=== PATIENT | male | born 1955 | race Caucasian/White ===

== ENCOUNTER 2019-11-19 19:16 | Emergency (ER) | payer BC ==
[~2019-11-19] VITALS: Ht 175.3 cm; Wt 77.1 kg
[2019-11-19] MEDS ORDERED: SODIUM CHLORIDE 0.9% 1000ML 1,000 ML IV STA (20:03)
[2019-11-19] MEDS ORDERED: ASPIRIN 81 MG CHEW TAB PO ONE (20:15)
[2019-11-19 20:27] LABS: BASOPHILS # (AUTO) 0.1 (0.0-0.1); BASOPHILS % 0.9 % (0.0-1.0); EOSINOPHILS # (AUTO) 0.1 (0.0-0.4); EOSINOPHILS % 0.9 % (0.0-6.0); HEMATOCRIT 47.4 % (38.2-49.6); HEMOGLOBIN 15.5 g/dL (14.0-18.0); LYMPHOCYTES % 13.3 % (18.0-39.1); MEAN CORPUSCULAR HEMOGLOBIN 28.4 pg (28-32); MEAN CORPUSCULAR HGB CONC 32.7 g/dL (31-35); MEAN CORPUSCULAR VOLUME 86.8 fL (81-99); MONOCYTES # (AUTO) 0.5 (0.2-0.8); MONOCYTES % 7.1 % (4.4-11.3); NEUTROPHILS # (AUTO) 5.8 (2.1-6.9); NEUTROPHILS % 77.5 % (38.7-80.0); PLATELET COUNT 391 x10e3/uL (140-360); RED BLOOD COUNT 5.46 x10e6/uL (4.3-5.7); RED CELL DISTRIBUTION WIDTH 14.2 % (11.7-14.4)
--- NOTE | 2019-11-19 20:39 | Diagnostic Imaging Report ---
EXAMINATION: CHEST SINGLE (PORTABLE) INDICATION: ^ERMD ORDER ^Y COMPARISON: None FINDINGS: AP view TUBES and LINES: None. LUNGS: Lungs are well inflated. Lungs are clear. There is no evidence of pneumonia or pulmonary edema. PLEURA: No pleural effusion or pneumothorax. HEART AND MEDIASTINUM: The cardiomediastinal silhouette is unremarkable.. BONES AND SOFT TISSUES: No acute osseous lesion. Soft tissues are unremarkable. UPPER ABDOMEN: No free air under the diaphragm. IMPRESSION: No acute thoracic abnormality. Signed by: Dr. Sarah Pena M.D. on 11/19/2019 8:36 PM
--- NOTE | 2019-11-19 20:41 | Diagnostic Imaging Report ---
History:left weakness Comparison studies: None Technique: Axial images were obtained from the skull base to the vertex. Coronal and sagittal images reconstructed from the axial data. Dose modulation, iterative reconstruction, and/or weight based adjustment of the mA/kV was utilized to reduce the radiation dose to as low as reasonably achievable. 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 Otherwise, no abnormalities. Extra-axial spaces: No masses. No fluid collections. Brain sulci: Mildly prominent. Ventricles: Mild compensatory dilatation. No hydrocephalus. Parenchyma: Describe hypodensities in the supratentorial white matter are small vessel ischemic changes. No masses, hemorrhage, acute or chronic cortical vascular insults. Sellar/suprasellar region: No abnormalities. Craniocervical junction: Patent foramen magnum. No Chiari one malformation. Incidental findings: Subtle atherosclerotic calcifications in the carotid siphons . Impression: 1. No intracranial abnormalities. 2. 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 Signed by: Dr. Newton Brooks M.D. on 11/19/2019 8:37 PM
[2019-11-19 20:44] LABS: ALANINE AMINOTRANSFERASE 27 IU/L (0-55); ALBUMIN 4.6 g/dL (3.5-5.0); ALBUMIN/GLOBULIN RATIO 1.2 (0.8-2.0); ALKALINE PHOSPHATASE 66 IU/L (40-150); ANION GAP 15.3 mmol/L (8-16); BLOOD UREA NITROGEN 17 mg/dL (7-26); BUN/CREATININE RATIO 15 (6-25); CARBON DIOXIDE 27 mmol/L (22-29); CHLORIDE 106 mmol/L (98-107); CREATINE KINASE 158 IU/L (30-200); CREATININE, SERUM 1.17 mg/dL (0.72-1.25); EST GLOMERULAR FILTRATION RATE > 60 ML/MIN (60-); GLUCOSE 96 mg/dL (74-118); POTASSIUM 4.3 mmol/L (3.5-5.1); SODIUM 144 mmol/L (136-145)
--- NOTE | 2019-11-19 22:49 | NUR ---
TRANSFER INITIATED TO [facility], SPOKE TO PAULINO
--- NOTE | 2019-11-19 22:54 | NUR ---
HOME HORVATH SPEAKING TO AT [facility]
== END 2019-11-19 23:59 | disposition other institution (70) ==
LOC: ER 19:16
DX: R53.1 Weakness (principal); G45.9 Transient cerebral ischemic attack, unspecified; R00.1 Bradycardia, unspecified; R26.2 Difficulty in walking, not elsewhere classified; D17.79 Benign lipomatous neoplasm of other sites
CPT/HCPCS: 36415; 70450; 71045; 80053; 80320; 82550; 82553; 84484; 85025; 93005; 99284

== ENCOUNTER 2020-01-27 13:46 | Observation (INO) | payer BC, OTHER ==
[~2020-01-27] VITALS: Ht 175.3 cm; Wt 81.2 kg
--- NOTE | 2020-01-27 15:22 | Diagnostic Imaging Report ---
EXAMINATION: CHEST 2 VIEWS INDICATION: Chest pain COMPARISON: Chest radiograph 11/19/2019 FINDINGS: LINES/TUBES:None LUNGS:Linear and hazy opacity at the left perihilar region. PLEURA:No pleural effusion or pneumothorax. MEDIASTINUM:The cardiomediastinal silhouette appears normal in size and shape. BONES/SOFT TISSUES:No acute osseous injury. ABDOMEN:No free air under the diaphragm. IMPRESSION: New linear and hazy opacities at the left perihilar region may represent subsegmental atelectasis however superimposed aspiration or pneumonia could have a similar appearance in the proper clinical setting. Signed by: Waldo Mims MD on 01/27/2020 3:19 PM
[2020-01-27] MEDS ORDERED: CEFTRIAXONE SOD 1 GM/NS 50 ML 50 ML IV ONE (16:45)
[2020-01-27 17:06] LABS: BASOPHILS # (AUTO) 0.1 (0.0-0.1); BASOPHILS % 0.5 % (0.0-1.0); EOSINOPHILS # (AUTO) 0.2 (0.0-0.4); EOSINOPHILS % 1.5 % (0.0-6.0); HEMATOCRIT 36.5 % (38.2-49.6); HEMOGLOBIN 11.8 g/dL (14.0-18.0); LYMPHOCYTES # (AUTO) 1.1 (1.0-3.2); MEAN CORPUSCULAR HEMOGLOBIN 27.5 pg (28-32); MEAN CORPUSCULAR HGB CONC 32.3 g/dL (31-35); MEAN CORPUSCULAR VOLUME 85.1 fL (81-99); MONOCYTES # (AUTO) 1.2 (0.2-0.8); MONOCYTES % 10.6 % (4.4-11.3); NEUTROPHILS # (AUTO) 8.6 (2.1-6.9); PLATELET COUNT 459 x10e3/uL (140-360); RED BLOOD COUNT 4.29 x10e6/uL (4.3-5.7); RED CELL DISTRIBUTION WIDTH 14.2 % (11.7-14.4)
[2020-01-27] MEDS ORDERED: CEFTRIAXONE SOD 1 GM VIAL ONE (17:22)
[2020-01-27 17:23] LABS: ALANINE AMINOTRANSFERASE 74 IU/L (0-55); ALBUMIN 3.2 g/dL (3.5-5.0); ALBUMIN/GLOBULIN RATIO 0.6 (0.8-2.0); ALKALINE PHOSPHATASE 98 IU/L (40-150); ANION GAP 16.3 mmol/L (8-16); BLOOD UREA NITROGEN 16 mg/dL (7-26); BUN/CREATININE RATIO 17 (6-25); CALCIUM 9.4 mg/dL (8.4-10.2); CARBON DIOXIDE 25 mmol/L (22-29); CHLORIDE 101 mmol/L (98-107); CREATININE, SERUM 0.92 mg/dL (0.72-1.25); EST GLOMERULAR FILTRATION RATE > 60 ML/MIN (60-); GLUCOSE 94 mg/dL (74-118); POTASSIUM 4.3 mmol/L (3.5-5.1); SODIUM 138 mmol/L (136-145)
[2020-01-27] MEDS ORDERED: ATORVASTATIN CA80 MG (18:02)
[2020-01-27] MEDS ORDERED: LEVOTHYROXINE25 MCG (18:02)
[2020-01-27] MEDS ORDERED: LISINOPRIL10 MG (18:02)
--- NOTE | 2020-01-27 18:04 | NUR ---
covid swab done
--- NOTE | 2020-01-27 19:04 | Emergency Department Note ---
History of Present Illnes History of Present Illness Chief Complaint: Chest Pain History of Present Illness This is a 64 year old male . Chief Complaint Comment c/o pain to left side of chest x 1 week c/o pain on inspiration and palpation states he was just working then pain came on Historian: Patient Arrival Mode: Car Onset quality: gradual Duration (how long): week(s) Timing of current episode: constant Progression: worsening Past Medical/Family History Physician Review I have reviewed the patient's past medical and family history. Any updates have been documented here. Past Medical History Recent Fever: No Clinical Suspicion of Infectio: No New/Unexplained Change in Ment: No Past Medical History: Hypertension, Hypothyroidism, Hyperlipedemia Past Surgical History: None Social History Smoking Cessation: Former smoker Counseling Performed: No Alcohol Use: None Any Illegal Drug Use: No TB Exposure/Symptoms: No Physically hurt or threatened: No Other Last Tetanus: utd Any Pre-Existing Lines (PICC,: No Is patient up to date on immun: Yes Last Flu: utd Last Pneumovax: utd Review of Systems Review of Systems Constitutional: Reports no symptoms EENTM: Reports no symptoms Cardiovascular: Reports no symptoms Respiratory: Reports as per HPI, Reports other Gastrointestinal: Reports no symptoms Genitourinary: Reports no symptoms Musculoskeletal: Reports no symptoms Integumentary: Reports no symptoms Neurological: Reports no symptoms Psychological: Reports no symptoms Endocrine: Reports no symptoms Hematological/Lymphatic: Reports no symptoms Physical Exam Related Data Allergies: Coded Allergies: No Known Allergies (Unverified , 11/19/19) Triage Vital Signs Vital Signs Date Time Temp Pulse Resp B/P (MAP) Pulse Ox O2 Delivery O2 Flow Rate FiO2 01/27/20 13:57 97.8 69 18 149/85 95 Vital signs reviewed: Yes Physical Exam CONSTITUTIONAL Constitutional: Present well-developed, Present well-nourished HENT HENT: Present normocephalic, Present atraumatic, Present oropharynx clear/moist, Present nose normal HENT L/R: Present left ext ear normal, Present right ext ear normal EYES Eyes: Reports PERRL, Reports conjunctivae normal NECK Neck: Present ROM normal PULMONARY Pulmonary: Present effort normal, Present breath sounds normal CARDIOVASCULAR Cardiovascular: Present regular rhythm, Present heart sounds normal, Present capillary refill normal, Present normal rate GASTROINTESTINAL Abdominal: Present soft, Present nontender, Present bowel sounds normal GENITOURINARY Genitourinary: Present exam deferred SKIN Skin: Present warm, Present dry MUSCULOSKELETAL Musculoskeletal: Present ROM normal NEUROLOGICAL Neurological: Present alert, Present oriented x 3, Present no gross motor or sensory deficits PSYCHOLOGICAL Psychological: Present mood/affect normal, Present judgement normal Results Laboratory Result Diagram: 01/27/20 1640 01/27/20 1640 Laboratory Laboratory Tests Test 01/27/20 17:30 01/27/20 16:40 White Blood Count 11.15 x10e3/uL (4.8-10.8) Red Blood Count 4.29 x10e6/uL (4.3-5.7) Hemoglobin 11.8 g/dL (14.0-18.0) Hematocrit 36.5 % (38.2-49.6) Mean Corpuscular Volume 85.1 fL (81-99) Mean Corpuscular Hemoglobin 27.5 pg (28-32) Mean Corpuscular Hemoglobin Concent 32.3 g/dL (31-35) Red Cell Distribution Width 14.2 % (11.7-14.4) Platelet Count 459 x10e3/uL (140-360) Neutrophils (%) (Auto) 77.0 % (38.7-80.0) Lymphocytes (%) (Auto) 10.0 % (18.0-39.1) Monocytes (%) (Auto) 10.6 % (4.4-11.3) Eosinophils (%) (Auto) 1.5 % (0.0-6.0) Basophils (%) (Auto) 0.5 % (0.0-1.0) Neutrophils # (Auto) 8.6 (2.1-6.9) Lymphocytes # (Auto) 1.1 (1.0-3.2) Monocytes # (Auto) 1.2 (0.2-0.8) Eosinophils # (Auto) 0.2 (0.0-0.4) Basophils # (Auto) 0.1 (0.0-0.1) Absolute Immature Granulocyte (auto 0.05 x10e3/uL (0-0.1) Sodium Level 138 mmol/L (136-145) Potassium Level 4.3 mmol/L (3.5-5.1) Chloride Level 101 mmol/L (98-107) Carbon Dioxide Level 25 mmol/L (22-29) Anion Gap 16.3 mmol/L (8-16) Blood Urea Nitrogen 16 mg/dL (7-26) Creatinine 0.92 mg/dL (0.72-1.25) Estimat Glomerular Filtration Rate > 60 ML/MIN (60-) BUN/Creatinine Ratio 17 (6-25) Glucose Level 94 mg/dL (74-118) Calcium Level 9.4 mg/dL (8.4-10.2) Total Bilirubin 0.4 mg/dL (0.2-1.2) Aspartate Amino Transf (AST/SGOT) 39 IU/L (5-34) Alanine Aminotransferase (ALT/SGPT) 74 IU/L (0-55) Alkaline Phosphatase 98 IU/L (40-150) Total Protein 8.3 g/dL (6.5-8.1) Albumin 3.2 g/dL (3.5-5.0) Globulin 5.1 g/dL (2.3-3.5) Albumin/Globulin Ratio 0.6 (0.8-2.0) Lab results reviewed: Yes Imaging Imaging results reviewed: Yes Impressions IMPRESSION: New linear and hazy opacities at the left perihilar region may represent subsegmental atelectasis however superimposed aspiration or pneumonia could have a similar appearance in the proper clinical setting. Signed by: Waldo Mims MD on 01/27/2020 3:19 PM Procedures 12 Lead ECG Interpretation ECG Interpretation : ECG: ECG 1 Prior ECG tracings: reviewed Rhythm: sinus rhythm Ectopy: PVC's Rate: normal QRS axis: normal ST segments normal: Yes T waves normal: Yes Clinical Impression: normal ECG Assessment & Plan Medical Decision Making MDM 64-year-old male arrives to the ED 1 week history of cough, no concerns of sepsis, severe sepsis or any other organ dysfunction at time of admission. Patient admitted for observation for community acquired pneumonia Assessment & Plan Final Impression: (1) Pneumonia Depart Disposition: ADMITTED Last Vital Signs Date Time Temp Pulse Resp B/P (MAP) Pulse Ox O2 Delivery O2 Flow Rate FiO2 01/27/20 18:03 63 16 137/72 97 01/27/20 13:57 97.8 Home Meds Reported Medications Levothyroxine Sodium (LEVOTHYROXINE SODIUM) 25 Mcg Tablet 01/27/20 Atorvastatin Calcium (ATORVASTATIN CALCIUM) 80 Mg Tablet 01/27/20 Lisinopril (LISINOPRIL) 10 Mg Tablet 01/27/20 Medications in the ED Ceftriaxone Sodium 50 ml @ 100 mls/hr ONCE ONCE IV Last administered on 01/27/20at 17:15; Admin Dose 100 MLS/HR; Start 01/27/20 at 16:45; Stop 01/27/20 at 17:14; Status DC Ceftriaxone Sodium 1 gm STK-MED ONCE .ROUTE ; Start 01/27/20 at 17:22; Stop 01/27/20 at 17:16; Status DC SANTHOSH PONCE DO Jan 27, 2020 19:03
--- NOTE | 2020-01-27 19:05 | NUR ---
RECEIVED BEDSIDE SHIFT REPORT FROM PREVIOUS NURSE. CALL LIGHT WITHIN REACH. PATIENT IN BED. Addendum: 01/27/20 at 2340 by Yanelis Balderas RN PLEASE IGNORE
--- NOTE | 2020-01-27 20:40 | NUR ---
RECEIVED REPORT FROM DEEJAY, ER NURSE. PATIENT ARRIVED VIA WHEELCHAIR. PATIENT IS A&OX3. PATIENT IN PAIN AND WANTING SOMETHING FOR PAIN. CALL LIGHT WITHIN REACH.
[2020-01-27 20:45] VITALS: BP 136/77
[2020-01-27 20:55] VITALS: BP 136/77
[2020-01-27 21:50] VITALS: BP 136/77
[2020-01-27] MEDS ORDERED: ACETAMINOPHEN 325 MG TAB PO PRN (22:45)
[2020-01-28] VITALS: BP 130/71
[2020-01-28 04:00] VITALS: BP 104/57
[2020-01-28 06:20] LABS: BASOPHILS # (AUTO) 0.1 (0.0-0.1); BASOPHILS % 0.5 % (0.0-1.0); EOSINOPHILS # (AUTO) 0.2 (0.0-0.4); EOSINOPHILS % 1.8 % (0.0-6.0); HEMOGLOBIN 11.3 g/dL (14.0-18.0); LYMPHOCYTES # (AUTO) 0.9 (1.0-3.2); LYMPHOCYTES % 7.9 % (18.0-39.1); MEAN CORPUSCULAR HEMOGLOBIN 28.1 pg (28-32); MEAN CORPUSCULAR HGB CONC 32.3 g/dL (31-35); MEAN CORPUSCULAR VOLUME 87.1 fL (81-99); MONOCYTES # (AUTO) 1.2 (0.2-0.8); MONOCYTES % 10.7 % (4.4-11.3); NEUTROPHILS # (AUTO) 8.5 (2.1-6.9); NEUTROPHILS % 78.6 % (38.7-80.0); PLATELET COUNT 438 x10e3/uL (140-360); RED BLOOD COUNT 4.02 x10e6/uL (4.3-5.7); RED CELL DISTRIBUTION WIDTH 14.3 % (11.7-14.4)
[2020-01-28 06:41] LABS: ALANINE AMINOTRANSFERASE 59 IU/L (0-55); ALBUMIN 2.9 g/dL (3.5-5.0); ALBUMIN/GLOBULIN RATIO 0.6 (0.8-2.0); ALKALINE PHOSPHATASE 91 IU/L (40-150); ANION GAP 15.9 mmol/L (8-16); BLOOD UREA NITROGEN 18 mg/dL (7-26); BUN/CREATININE RATIO 17 (6-25); CALCIUM 9.2 mg/dL (8.4-10.2); CARBON DIOXIDE 26 mmol/L (22-29); CHLORIDE 101 mmol/L (98-107); CHOLESTEROL 111 MD/DL (0-199); CREATININE, SERUM 1.04 mg/dL (0.72-1.25); EST GLOMERULAR FILTRATION RATE > 60 ML/MIN (60-); GLUCOSE 91 mg/dL (74-118); HDL CHOLESTEROL 22 MG/DL (40-60); LDL CHOLESTEROL 73 MG/DL (60-130); PHOSPHORUS 3.8 MG/DL (2.3-4.7); POTASSIUM 4.9 mmol/L (3.5-5.1); SODIUM 138 mmol/L (136-145); TRIGLYCERIDES 78 MG/DL (0-149)
--- NOTE | 2020-01-28 06:55 | NUR ---
Received patient lying in bed with eyes open. Respiration even and unlabored without SOB. Call light in reach.
[2020-01-28 07:04] LABS: THYROID STIMULATING HORMONE 13.404 uIU/mL (0.350-4.940)
--- NOTE | 2020-01-28 07:41 | NUR ---
GAVE BEDSIDE SHIFT REPORT TO ONCOMING NURSE. CALL LIGHT WITHIN REACH. PATIENT IN BED.
[2020-01-28 08:17] VITALS: BP 124/65
[2020-01-28 09:10] VITALS: BP 124/65
[2020-01-28] MEDS ORDERED: GUAIFENESIN 600MG/DEXTROMETHORPHAN 30MG TABSR PO PRN (10:30)
[2020-01-28] MEDS ORDERED: LEVOTHYROXINE SODIUM 50 MCG TAB PO SCH (10:30)
[2020-01-28] MEDS ORDERED: ASPIRIN 81 MG CHEW TAB PO SCH (10:30)
[2020-01-28] MEDS ORDERED: ASPIRIN CHEW81 MG PO (10:33)
[2020-01-28] MEDS ORDERED: ZITHROMAX500 MG PO (10:33)
[2020-01-28] MEDS ORDERED: CEFDINIR300 MG PO (10:33)
[2020-01-28] MEDS ORDERED: FAMOTIDINE20 MG PO (10:36)
[2020-01-28] MEDS ORDERED: AZITHROMYCIN 500MG/NS 250 ML 250 ML IV SCH (11:30)
[2020-01-28] MEDS ORDERED: SODIUM CHLORIDE 0.9% 250ML 250 ML ONE (11:38)
[2020-01-28 11:57] VITALS: BP 126/69
[2020-01-28] MEDS ORDERED: FAMOTIDINE 20 MG/2 ML VIAL IV SCH (12:00)
--- NOTE | 2020-01-28 13:50 | Diagnostic Imaging Report ---
EXAM: CT Chest without intravenous contrast HISTORY: ^R/O PNA, PAIN/COUGH ^[id number] ^1300 COMPARISON: Chest radiograph 01/27/2020 TECHNIQUE: CT of the chest without intravenous contrast. Coronal and sagittal reformations were obtained. DOSE REDUCTION: The examination was performed according to the departmental dose-optimization program, which includes automated exposure control, adjustment of the mA and/or kV according to patient size and/or use of iterative reconstruction technique. FINDINGS: THE ABSENCE OF INTRAVENOUS CONTRAST DECREASES THE SENSITIVITY FOR DETECTION OF FOCAL LESIONS AND VASCULAR PATHOLOGY. LINES and TUBES: None. LUNGS, AIRWAYS AND PLEURA: Right lower lobe platelike atelectasis. Left upper lobe anterior/lingular segment 5 cm consolidation containing a subcentimeter calcification with adjacent mosaic groundglass pattern and air bronchograms. Right lung calcified granuloma Left basilar atelectasis with a small left pleural effusion. HEART AND MEDIASTINUM: The visualized thyroid gland is normal. Left peribronchial lymph node conglomerate measures 2.7 cm. Partially calcified hilar lymph nodes. Coronary arterial calcifications. SOFT TISSUES AND BONES: Unremarkable. UPPER ABDOMEN: Radiopaque dependent density within the gallbladder may represent stones/sludge. IMPRESSION: The absence of intravenous contrast decreases the sensitivity for detection of focal lesions and vascular pathology. 1. Left upper lobe 5 cm consolidation with hilar lymphadenopathy. Differential diagnosis includes infection and malignancy. Correlate with clinical symptoms and laboratory values. Recommend follow-up CT in one month. 2. Additional findings as above. Signed by: Bolivar Nolen MD on 01/28/2020 1:46 PM
[2020-01-28] MEDS ORDERED: CEFTRIAXONE SOD 1 GM/NS 50 ML 50 ML IV SCH (17:00)
--- NOTE | 2020-01-28 17:22 | NUR ---
PIV to right AC discontinued. Catheter tip intact, no bleeding noted. Discharge education provided, discharge packet and home prescription medications given. Transported patient via wheelchair to private vehicle with all personal belongings taken.
[2020-01-28] MEDS ORDERED: ATORVASTATIN 40 MG TAB PO SCH (21:00)
[2020-01-28] MEDS ORDERED: ATORVASTATIN 20 MG TAB PO SCH (21:00)
[2020-01-29] MEDS ORDERED: LEVOTHYROXINE SODIUM 25 MCG TABLET PO SCH (06:00)
[2020-01-29] MEDS ORDERED: LISINOPRIL 10 MG TAB PO SCH (09:00)
--- NOTE | 2020-01-29 16:16 | Discharge Summary ---
ADMISSION DIAGNOSES: 1. Chest pain. 2. Hypothyroidism. 3. Hypertension. 4. Hyperlipidemia. 5. Left lung opacity. DISCHARGE DIAGNOSES: 1. Chest pain. 2. Hypothyroidism. 3. Hypertension. 4. Hyperlipidemia. 5. Left lung opacity. 6. Left upper lobe pneumonia present on admission. HISTORY: Hypertension, hyperlipidemia, hypothyroidism, TIA. SURGICAL HISTORY: None. FAMILY HISTORY: The patient's aunt had cancer. The patient's dad, uncle, and grandfather had heart attack. SOCIAL HISTORY: Noncontributory. The patient admits to quitting smoking November 19 of this year and quit alcohol use over 20 years ago. HOSPITAL COURSE: A 64-year-old male complains of left-sided chest pain that feels like a pulled muscle. The pain does not radiate. He denies shortness of breath, dyspnea on exertion, diaphoresis, and dizziness. The pain worsens with deep breath and lying on that side. On admission, troponins were negative x2. Echo showed EF of 55%. BNP was within normal limits. Chest x-ray showed left side opacity. CT of the chest was done, which shows a left upper lobe 5 cm consolidation. The patient was started on antibiotics for pneumonia. He was advised to follow up with a repeat CT of the chest in one month. The patient's TSH was elevated; however, his levothyroxine dose was just changed one month ago. He was advised to follow up with his primary care regarding TSH level. As it was found that the patient did not have ACS, he can discharge home with new prescriptions for aspirin and Pepcid. He was also given prescriptions for Zithromax and Omnicef. The patient will follow up with primary care in 1 to 2 weeks. The patient understands discharge instructions and agrees to plan. Vital signs stable. The patient afebrile. Dictated by Margaux Ortiz NP MD GEOVANNY [place]/REBECCA /[id number]
== END 2020-01-28 17:22 | disposition home or self-care (01) ==
LOC: ER 13:46 → ERHOLD 17:40 → MED/SURG2 21:49
PROVIDERS: ADMIT Internal Medicine; ATTEND Internal Medicine
DX: R07.9 Chest pain, unspecified (principal); J18.9 Pneumonia, unspecified organism; I10 Essential (primary) hypertension; E03.9 Hypothyroidism, unspecified; E78.5 Hyperlipidemia, unspecified; Z87.891 Personal history of nicotine dependence; Z86.73 Personal history of transient ischemic attack (TIA), and cerebral infarction without residual deficits; Z80.9 Family history of malignant neoplasm, unspecified; Z82.49 Family history of ischemic heart disease and other diseases of the circulatory system
CPT/HCPCS: 36415 ×2; 71046; 71250; 80053 ×2; 80061; 83036; 83735; 83880; 84100; 84443; 84484; 85025 ×2; 87040; 87635; 93005; 93041; 93306; 99284; G0378 ×2; J0456; J0696 ×2; J7050